=== PATIENT | male | born 1990 | race Two or more races ===

== ENCOUNTER 2025-04-10 23:55 | Emergency (ER) | payer MEDICAID, SELFPAY ==
[2025-04-10 23:55] VITALS: BMI 38.9
[2025-04-11 00:34] VITALS: BP 169/98; PULSE 71; RESP 20; TEMP 36.7; O2SAT 95
--- NOTE | 2025-04-11 00:59 | PD.EDRME ---
Rapid Medical Screening Exam RME Arrival date/time: 04/10/25 23:55 Chief Complaint: Chest Pain Vital signs: Vital Signs Temperature 98.1 F 04/11/25 00:34 Pulse Rate 71 04/11/25 00:34 Respiratory Rate 20 04/11/25 00:34 Blood Pressure 169/98 H 04/11/25 00:34 Pulse Oximetry (%) 95 04/11/25 00:34 Oxygen Delivery Method Room Air 04/11/25 00:34 Pulse ox is 95% room air. Vital signs reviewed by provider: Yes RME Narrative: Patient developed numbness and tingling with left-sided chest pain which resolved on his way home, patient went to take a blood pressure with a portable blood pressure cuff and it showed the systolic pressure into the 190s because the patient concern causing him to go to the emergency department.
--- NOTE | 2025-04-11 01:01 | XR_ITS ---
Examination: PA and lateral chest 2 views TECHNIQUE: PA lateral chest 2 views Date and time: April 11, 2025 0106 hours Comparison April 05, 2011 INDICATIONS: Chest pain today FINDINGS: Normal heart size Mild vascular congestion. No lumbar pneumonia or shirley pulmonary edema IMPRESSION: Mild vascular congestion
[2025-04-11 01:49] LABS: Basophils % (Auto) 0 % (0-2.5); Eosinophils # (Auto) 0.1 Thou/mm3 (0.0-0.5); Eosinophils % (Auto) 1 % (0-10); Hematocrit 39.8 % (41.0-53.0); Hemoglobin 13.7 g/dL (13.5-16.0); Immature Granulocytes % (Auto) 0 % (0-0); Immature Granulocytes Auto 0.03 Thou/mm3 (0.00-0.00); Lymphocytes # (Auto) 2.7 Thou/mm3 (1.0-4.8); Lymphocytes % (Auto) 25 % (10-50); Mean Corpuscular HGB Conc 34.4 g/dl (31.0-37.0); Mean Corpuscular Volume 87 fL (80-100); Monocytes # (Auto) 0.6 Thou/mm3 (0.0-0.8); Monocytes % (Auto) 6 % (0-12); Neutrophils # (Auto) 7.4 Thou/mm3 (1.8-7.7); Neutrophils % (Auto) 68 % (37-80); Nucleated Red Blood Cell % 0 /100 WBC (0); Platelet Count 254 Thou/mm3 (140-440); RDW Standard Deviation 40.4 fL (35.1-43.9); Red Blood Count 4.56 Miln/mm3 (4.50-5.90); White Blood Count 10.8 Thou/mm3 (3.8-10.6)
[2025-04-11 01:51] LABS: B-Type Natriuretic Peptide < 20 pg/mL (0-100)
[2025-04-11 01:52] LABS: Alanine Aminotransferase 24 U/L (10-49); Albumin, Serum 4.7 gm/dL (3.5-5.0); Alkaline Phosphatase 88 U/L (46-116); Anion Gap 9 (7-16); BUN/Creatinine Ratio 12 Ratio (12-20); Bilirubin,Total 0.4 mg/dL (0.3-1.2); Blood Urea Nitrogen 12 mg/dL (9-23); Calcium 9.8 mg/dL (8.3-10.6); Calcium (Corrected) 9.8 mg/dL (8.5-10.1); Carbon Dioxide 24.6 mMol/L (20.0-31.0); Chloride 104 mMol/L (98-107); Estimated Creatinine Clearance 165.2 mL/min (>60); Globulin 2.4 gm/dL (2.3-3.5); Glucose 114 mg/dL (74-106); Osmolality,Calculated 276 (275-295); Potassium 3.9 mMol/L (3.4-5.1); Sodium 138 mMol/L (136-145); Total Protein 7.1 gm/dL (5.7-8.2); Troponin I < 0.002 ng/mL (0.0-0.045); eGFR > 60 See Note
[2025-04-11 02:18] VITALS: BP 171/90; PULSE 61; RESP 18; O2SAT 98
--- NOTE | 2025-04-11 02:25 | EDNOTE_ITS ---
ED Chest Pain RME/HPI General Chief Complaint: Chest Pain Stated Complaint: CHEST PAIN / LEFT ARM TINGLING Time Seen by Provider: 04/11/25 01:48 Arrival date/time: 04/10/25 23:55 RME / HPI RME / HPI narrative: Patient developed numbness and tingling with left-sided chest pain which resolved on his way home, patient went to take a blood pressure with a portable blood pressure cuff and it showed the systolic pressure into the 190s because the patient concern causing him to go to the emergency department. ------- Dr. Sequeira?s Main ED Evaluation: 34yo male with a history of HTN presents to the ED for complaints of left hand numbness and tingling. Patient states he was driving home from [place] when he started having numbness and tingling to his left hand, reporting it radiates up to his left shoulder. Patient describes it as a burning sensation, reporting it worsens when he moves. Patient checked his blood pressure and was noted to be 190 systolically and he was concerned, so he came in for evaluation. Patient denies any chest pain, shortness of breath, N/V, fever, chills, sweating or any other associated symptoms. NKA. Related Data Previous Rx's ?Medication ?Instructions ?Recorded acetaminophen 325 mg capsule 975 mg (3 x 325 mg) PO Q6 H PRN 05/11/20 pain #30 caps ibuprofen 800 mg tablet 800 mg PO TID PRN pain #30 t abs 05/11/20 Allergies Allergy/AdvReac Type Severity Reaction Status Date / Time No Known Allergies Allergy Verified 08/18/24 20:46 Review of Systems Review of Systems Systems Reviewed: All systems reviewed, normal except as documented Past Medical History Past Medical History CARDIAC: Positive Hypertension; Negative Congestive Heart Failure RESPIRATORY: Negative Chronic Obstructive Pulmonary Disease (COPD) GENITOURINARY: Negative Renal Disease ENDOCRINE: Negative Diabetes Mellitus Type 1 or Diabetes Mellitus Type 2 Surgical History SURGICAL: Positive of Shoulder Sx (RIGHT COLLAR BONE) Social History SMOKING STATUS: Never smoker SUBSTANCE USE: crack/cocaine (2 days ago) ED Exam Narrative Physical exam: GENERAL APPEARANCE: alert and oriented x 4, well-developed, well-nourished, no acute distress VITALS: All vitals were reviewed and the pulse ox is 98% on room air, which is normal according to my interpretation. HEENT: Normocephalic, atraumatic; pupils equal, round, reactive to light; EOMI; mucous membranes pink, moist; oropharynx clear NECK: Supple LUNGS: CTABL; no wheezes, no rales, no rhonchi HEART: Regular rate, regular rhythm; normal S1, S2; no murmurs ABDOMEN: non distended; normal BS; soft, no tenderness, no guarding, no rebound; no masses, no organomegaly, no hernia BACK: no CVA tenderness EXTREMITIES: atraumatic; no edema NEUROLOGIC: awake; alert and oriented x4; cranial nerves II-XII grossly intact; no focal sensory or motor deficits PSYCHIATRIC: appropriate mood and affect SKIN: warm, dry, normal color; no rashes Course Course Course Narrative: CXR is ordered for determining the etiology of chest pain. Quality Measures none Orders Category Date Time Status EKG (ED ONLY) *Do not use* NOW Care 04/10/25 23:58 Completed CXR2 [XR chest 2V] Stat Exams 04/11/25 01:01 Taken EKG (ED Only) Stat Exams 04/10/25 23:58 Ordered BNP [B-Type Natriuretic Peptide] Stat Lab 04/11/25 01:12 Completed CBC Stat Lab 04/11/25 01:12 Completed CMP [Comprehensive Metabolic Panel] Stat Lab 04/11/25 01:12 Completed Troponin I Stat Lab 04/11/25 01:12 Completed Vital Signs Vital signs: Vital Signs Temperature 98.1 F 04/11/25 00:34 Pulse Rate 71 04/11/25 00:34 Respiratory Rate 20 04/11/25 00:34 Blood Pressure 169/98 H 04/11/25 00:34 Pulse Oximetry (%) 95 04/11/25 00:34 Oxygen Delivery Method Room Air 04/11/25 00:34 Chest Pain MDM Narrative MDM Narrative:: Scribe Attestation: 04/11/25 Belen Ambrocio am scribing for and in the presence of Dr. Sequeira. Patient data External records reviewed:: [facility] previous records (Per chart review, patient has no relevant previous ED visits or admissions to this facility.) Clinical information provided by:: patient Social determinants that could affect healthcare access:: none Patient has the following chronic illnesses:: HTN How is presenting disease/condition affected by chronic disease/condition?: uneffected by Evaluation data The following diagnostics were reviewed and interpreted by me:: lab results, radiology exam(s) and EKG tracing(s) Lab and/or radiology exams considered but not ordered:: none Interpretation Summary: WBC 10.8, CMP normal, Troponin normal. CXR is negative for any cardiomegaly, pleural effusions or infiltrates, according to my interpretation. EKG done at 0006, NSR, rate of 72, normal intervals, normal axis, no acute ST or T wave changes, according to my interpretation. Medications / Prescriptions Medications or Prescriptions considered but not ordered:: none Medication administrations:: none Consultations Consultation(s) initiated? (list below): No Diagnosis Chest Pain Differential Diagnosis: other (ACS, musculoskeletal pain, nerve pain) Most likely diagnosis given after review of the tests above:: see clinical impression below Admission Indicated Admission indicated?: not indicated Admission Request Was there a request for admission?: No Disposition Plan Disposition Plan: Discharge Discharge Attestation Discharge Attestation: The patient and all family members were given an opportunity to ask questions and understood the discharge instructions. Discharge instructions specifically effects, indications for sooner follow up or return to the emergency department, and the expected course of current diagnosis. Patient condition: Stable Discharge Plan Plan Patient Disposition: HOME (Self Care) Prescriptions/Referrals Prescriptions/Med Rec: No Action ibuprofen 800 mg tablet 800 mg PO TID PRN (Reason: pain) Qty: 30 0RF acetaminophen 325 mg capsule 975 mg PO Q6H PRN (Reason: pain) Qty: 30 0RF Referrals: Temporary Provider,ED [Primary Care Provider] - In 1 week Problem List Clinical Impression: Paresthesia of left arm Patient/Caregiver Discharge Instructions Education Materials: ED Paraesthesias Print Language: Persian Stand Alone Forms: [facility] Award Info., Patient Portal Info Letter
[2025-04-11 03:00] VITALS: BP 173/91; PULSE 61; RESP 18; O2SAT 93
== END 2025-04-11 03:01 | disposition home or self-care (01) ==
LOC: SERX 04-11 02:57
PROVIDERS: Physician Assistant; Emergency Provider Emergency Medicine; PCP Physician Assistant
DX: R20.2 Paresthesia of skin (principal); R07.9 Chest pain, unspecified; R94.31 Abnormal electrocardiogram [ECG] [EKG]; I10 Essential (primary) hypertension
CPT/HCPCS: 36415; 71046; 80053; 83880; 84484; 85025; 93005; 99283